=== PATIENT | female | born 1965 | race Caucasian/White ===

== ENCOUNTER 2018-09-06 07:52 | Inpatient (IN) | payer BC, OTHER ==
[~2018-09-06] VITALS: Ht 170.2 cm; Wt 133.0 kg
[~2018-09-06 07:52] MED LIST: CELEBREX100 MG PO; CIPRO500 MG PO; CLINDAMYCIN HC300 MG PO; COLACE100 MG PO; CYCLOBENZAPRINE5 MG PO; FAMOTIDINE20 MG PO; FUROSEMIDE40 MG PO; MILK OF MA400 MG/5 M PO; MINOCYCLINE HC100 M1 PO; PLAVIX75 MG PO; PRINZIDE 20-121 EACH; PROBIOTIC & AC1 EACH PO; TYLENOL WITH C1 EACH PO; ULTRAM 50MG50 MG PO; ZOFRAN4 MG PO
--- OUTSIDE RECORDS SUMMARY | 2018-09-06 07:55 | XMS REPORT ---
[facility] Address Unknown Phone Unavailable Care Team Providers Care Implementation Advisor Name Role Phone Unavailable Unavailable Payers Payer Name Policy Type Policy Number Effective Date Expiration Date Problems This patient has no known problems. Allergies, Adverse Reactions, Alerts Allergy Name Allergy Type Status Severity Reaction(s) Onset Date Inactive Date Treating Clinician Comments erythromycin base DA Active [place] 2018-08-05 00:00:00 sulfamethoxazole DA Active [place] 2018-08-05 00:00:00 levofloxacin DA Active MO 2018-08-05 00:00:00 erythromycin base DA Active U 2016-06-25 00:00:00 sulfamethoxazole DA Active U 2016-06-25 00:00:00 trimethoprim DA Active U 2016-06-25 00:00:00 levofloxacin DA Active U 2016-06-25 00:00:00 Penicillins DA Active [place] 2014-03-31 00:00:00 lidocaine DA Active MO 2014-03-31 00:00:00 aspirin DA Active MO 2014-03-31 00:00:00 BANDAIDS DA Active [place] 2013-06-23 00:00:00 Medications This patient has no known medications.
--- OUTSIDE RECORDS SUMMARY | 2018-09-06 07:55 | XMS REPORT | Clinical Summary ---
Author Author [facility] Address Unknown Phone Unavailable Care Team Providers Care Automotive Glass Installer Name Role Phone Calin Pardo MD PCP Allergies Not on File Current Medications Not on file Active Problems Not on file Encounters Date Type Specialty Care Team Description 08/02/2018 Transcribe Access Kamala Menjivar, Breast cancer screening Orders (Primary Dx) after 09/05/2017 Social History Tobacco Use Types Packs/Day Years Used Date Never Assessed Sex Assigned at Date Recorded Not on file Last Filed Vital Signs Not on file Plan of Treatment Health Maintenance Due Date Last Done Comments CERVICAL CANCER SCREENING 1988 BREAST CANCER SCREENING 2017 12/29/2013, 01/15/2012 COLON CANCER SCREENING 2017 SHINGRIX VACCINE (#1) 2017 INFLUENZA VACCINE 06/01/2018 Results Not on fileafter 09/05/2017 Insurance Payer Benefit Subscriber ID Type Phone Address Plan / Group BCBS BCBS xxxxxxxxxxxx PPO CHOICE PPO/ALLI CHÁVEZ PPO Home: [place] [address]
[2018-09-06] MEDS ORDERED: CELEBREX100 MG PO (08:34)
[2018-09-06] MEDS ORDERED: CLINDAMYCIN HC150 MG PO (08:34)
[2018-09-06] MEDS ORDERED: LISINOPRIL-HCT1 EAC1 PO (08:34)
[2018-09-06] MEDS ORDERED: DEXAMETHASONE SOD PHOS 10 MG/1 ML VIAL IV ONE (09:15)
[2018-09-06] MEDS ORDERED: KETOROLAC TROMETHAMINE 30 MG/ML VIAL IV STA (09:15)
[2018-09-06] MEDS ORDERED: SODIUM CHLORIDE 0.9% IV ONE (10:00)
[2018-09-06] MEDS ORDERED: VANCOMYCIN HCL IV ONE (10:00)
[2018-09-06] MEDS ORDERED: SODIUM CHLORIDE FLUSH 10 ML SYR INJ PRN (13:00)
[2018-09-06] MEDS ORDERED: TRAMADOL HCL 50 MG TAB PO PRN (13:00)
[2018-09-06] MEDS ORDERED: ONDANSETRON HCL INJ 2 MG/ML VIAL IV PRN (13:00)
[2018-09-06] MEDS ORDERED: KETOROLAC TROMETHAMINE 10 MG TAB PO PRN (13:00)
--- OUTSIDE RECORDS SUMMARY | 2018-09-06 13:09 | XMS REPORT | Clinical Summary ---
Author Author [facility] Address Unknown Phone Unavailable Care Team Providers Care Technical Business Systems Analyst Name Role Phone Calin Pardo MD PCP [...] PPO Home: [place] [address]
[2018-09-06 17:41] VITALS: BP 119/56
[2018-09-06] MEDS ORDERED: SODIUM CHLORIDE 0.9% 500ML 500 ML ONE (19:47)
[2018-09-06 20:00] VITALS: BP 161/72
[2018-09-06] MEDS ORDERED: AZTREONAM 1 GM/NS 50 ML 50 ML IV SCH (20:45)
[2018-09-06 21:02] LABS: CHOL/HDL RATIO 4.8 (3.0-3.6)
[2018-09-06] MEDS: VANCOMYCIN 1GM/NS 250 ML 250 ML IV SCH (21:16)
[2018-09-06] MEDS: AZTREONAM 1 GM/NS 50 ML 50 ML IV SCH (22:04)
[2018-09-06 22:39] VITALS: BP 161/72
--- NOTE | 2018-09-06 23:10 | History and Physical ---
PRIMARY CARE PHYSICIAN: Dr. Calin Pardo CHIEF COMPLAINT: Chin infection. HISTORY OF PRESENT ILLNESS: This is a 53-year-old woman with a history of recurrent leg cellulitis, now developing chin redness and pain. Patient states that she has been having recent skin infection that has been recurrent. She had unilateral Bartholin cyst, followed by recurrent Bartholin cyst on the upper lip side. She underwent incision and drainage, treated with clindamycin. She subsequently developed infection of the chin, received antibiotics, went to [facility] and underwent incision and drainage and treated with clindamycin, but symptoms worsened with redness spreading down the neck and up to face, therefore she came to the hospital for further evaluation and management. PAST MEDICAL HISTORY: Arthritis, bilateral knees; hypertension; Bartholin cyst; chin abscess, status post incision and drainage; right foreleg cellulitis; right leg pain; right leg edema; constipation; hypokalemia; prediabetes; morbid obesity; bilateral leg lymphedema. PAST SURGICAL HISTORY: Bilateral knee meniscus repair, right foot surgery, cholecystectomy, tonsillectomy, spider bide status post wound debridement. ALLERGIES: PER ELECTRONIC MEDICAL RECORD. FAMILY/SOCIAL HISTORY: Family history of diabetes and hypertension. Mother had colon cancer. Patient is . No alcohol, illicits, or cigarettes. MEDICATIONS: Per electronic medical record. REVIEW OF SYSTEMS: Denies any fever, chills, sweats, nausea, vomiting, diarrhea, headache, back pain, vision changes, leg pain. PHYSICAL EXAMINATION: VITAL SIGNS: Reviewed. GENERAL APPEARANCE: Tired-appearing woman resting in bed. HEENT: Anicteric. She has left chin erythema, tenderness, edema. There are some red streaks going down towards the neck. CARDIOVASCULAR: Normal S1 and S2. LUNGS: Moderate breath sounds. ABDOMEN: Soft, nontender, nondistended. EXTREMITIES: No edema. SKIN: Dry. PSYCHIATRIC: Flat affect. NEUROLOGICAL: Alert and oriented x3. Moving all extremities. LABS: Reviewed. MEDICATIONS: Reviewed. ASSESSMENT: This is a 53-year-old woman. 1. Chin abscess. 2. Prediabetes. 3. Morbid obesity. 4. Hypertension. 5. Hyperlipidemia. PLAN: 1. She is status post incision and drainage of the abscess. 2. Will use IV vancomycin and IV cefepime. 3. Follow up cultures. Obtain wound culture. 4. Use SCD for prophylaxis. 5. Disposition: Follow up labs in the morning and plan to treat with antibiotics for 1 to 2 days and subsequently transition to oral antibiotics. Job#: [id number]
[2018-09-07] VITALS (8 sets, daily range): BP systolic 101–132; BP diastolic 50–81
[2018-09-07 05:05] LABS: BASOPHILS % 0.1 % (0.0-1.0); HEMATOCRIT 35.8 % (34.2-44.1); HEMOGLOBIN 12.2 g/dL (12.0-16.0); LYMPHOCYTES # (AUTO) 1.4 (1.0-3.2); LYMPHOCYTES % 9.5 % (18.0-39.1); MEAN CORPUSCULAR HEMOGLOBIN 30.6 pg (28-32); MEAN CORPUSCULAR HGB CONC 34.1 g/dL (31-35); MEAN CORPUSCULAR VOLUME 89.7 fL (81-99); MONOCYTES # (AUTO) 0.5 (0.2-0.8); NEUTROPHILS # (AUTO) 13.2 (2.1-6.9); NEUTROPHILS % 86.7 % (38.7-80.0); PLATELET COUNT 260 x10e3/uL (140-360); RED BLOOD COUNT 3.99 x10e6/uL (3.6-5.1); RED CELL DISTRIBUTION WIDTH 12.9 % (11.7-14.4)
[2018-09-07] MEDS: AZTREONAM 1 GM/NS 50 ML 50 ML IV SCH ×3 (05:23→22:42)
[2018-09-07 07:08] LABS: ANION GAP 13.9 mmol/L (8-16); BLOOD UREA NITROGEN 27 mg/dL (7-26); BUN/CREATININE RATIO 28 (6-25); CALCIUM 9.2 mg/dL (8.4-10.2); CARBON DIOXIDE 21 mmol/L (22-29); CHLORIDE 101 mmol/L (98-107); CREATININE, SERUM 0.96 mg/dL (0.57-1.11); EST GLOMERULAR FILTRATION RATE > 60 ML/MIN (60-); GLUCOSE 151 mg/dL (74-118); POTASSIUM 3.9 mmol/L (3.5-5.1); SODIUM 132 mmol/L (136-145)
[2018-09-07] MEDS: HYDROCHLOROTHIAZIDE 25 MG TAB PO SCH (09:04)
[2018-09-07] MEDS: VANCOMYCIN 1GM/NS 250 ML 250 ML IV SCH ×2 (09:04→21:00)
[2018-09-07] MEDS: CLOPIDOGREL BISULFATE 75 MG TAB PO SCH (09:04)
[2018-09-07] MEDS: LISINOPRIL 20 MG TAB PO SCH (09:04)
[2018-09-08] VITALS: BP 104/55
[2018-09-08] MEDS ORDERED: CLINDAMYCIN 300MG 50 ML IV SCH
[2018-09-08 04:00] VITALS: BP 116/52
[2018-09-08] MEDS: AZTREONAM 1 GM/NS 50 ML 50 ML IV SCH (05:29)
[2018-09-08] MEDS: CLINDAMYCIN 300MG 50 ML IV SCH ×2 (05:59)
[2018-09-08 07:43] VITALS: BP 116/55
[2018-09-08] MEDS: HYDROCHLOROTHIAZIDE 25 MG TAB PO SCH (09:41)
[2018-09-08] MEDS: LISINOPRIL 20 MG TAB PO SCH (09:41)
[2018-09-08] MEDS: CLOPIDOGREL BISULFATE 75 MG TAB PO SCH (09:41)
[2018-09-08 11:25] VITALS: BP 136/78
[2018-09-08] MEDS: LINEZOLID 600 MG/D5W 300ML 300 ML IV SCH (14:27)
[2018-09-08 15:42] VITALS: BP 107/56
[2018-09-08 16:17] LABS: BASOPHILS # (AUTO) 0.1 (0.0-0.1); BASOPHILS % 0.6 % (0.0-1.0); EOSINOPHILS # (AUTO) 0.2 (0.0-0.4); EOSINOPHILS % 1.3 % (0.0-6.0); HEMATOCRIT 38.6 % (34.2-44.1); HEMOGLOBIN 12.6 g/dL (12.0-16.0); LYMPHOCYTES # (AUTO) 4.1 (1.0-3.2); LYMPHOCYTES % 36.3 % (18.0-39.1); MEAN CORPUSCULAR HEMOGLOBIN 29.9 pg (28-32); MEAN CORPUSCULAR HGB CONC 32.6 g/dL (31-35); MEAN CORPUSCULAR VOLUME 91.7 fL (81-99); MONOCYTES # (AUTO) 0.9 (0.2-0.8); NEUTROPHILS # (AUTO) 6.1 (2.1-6.9); NEUTROPHILS % 53.3 % (38.7-80.0); PLATELET COUNT 276 x10e3/uL (140-360); RED BLOOD COUNT 4.21 x10e6/uL (3.6-5.1); RED CELL DISTRIBUTION WIDTH 13.3 % (11.7-14.4)
[2018-09-08 16:38] LABS: ANION GAP 14.6 mmol/L (8-16); BLOOD UREA NITROGEN 23 mg/dL (7-26); BUN/CREATININE RATIO 26 (6-25); CALCIUM 8.9 mg/dL (8.4-10.2); CARBON DIOXIDE 26 mmol/L (22-29); CHLORIDE 99 mmol/L (98-107); EST GLOMERULAR FILTRATION RATE > 60 ML/MIN (60-); GLUCOSE 82 mg/dL (74-118); POTASSIUM 3.6 mmol/L (3.5-5.1); SODIUM 136 mmol/L (136-145)
[2018-09-08 20:00] VITALS: BP 96/54
[2018-09-08] MEDS: FAMOTIDINE 20 MG/2 ML VIAL IV SCH (22:38)
[2018-09-09] VITALS: BP 93/50
[2018-09-09] MEDS: LINEZOLID 600 MG/D5W 300ML 300 ML IV SCH (02:46)
[2018-09-09] MEDS ORDERED: SODIUM CHLORIDE 0.9% 250ML 250 ML ONE (02:48)
[2018-09-09 04:00] VITALS: BP 88/44
[2018-09-09 08:00] VITALS: BP 140/86
[2018-09-09] MEDS: LISINOPRIL 20 MG TAB PO SCH (08:46)
[2018-09-09] MEDS: CLOPIDOGREL BISULFATE 75 MG TAB PO SCH (08:46)
[2018-09-09] MEDS: HYDROCHLOROTHIAZIDE 25 MG TAB PO SCH (09:00)
[2018-09-09] MEDS ORDERED: LINEZOLID 600 MG/D5W 300ML 300 ML IV SCH (09:15)
[2018-09-09] MEDS: FAMOTIDINE 20 MG/2 ML VIAL IV SCH (09:34)
[2018-09-09 10:15] VITALS: BP 140/86
[2018-09-09] MEDS ORDERED: ZYVOX600 MG PO (11:38)
[2018-09-09 12:00] VITALS: BP 121/65
[2018-09-09 12:22] LABS: BASOPHILS # (AUTO) 0.1 (0.0-0.1); BASOPHILS % 0.7 % (0.0-1.0); EOSINOPHILS # (AUTO) 0.2 (0.0-0.4); EOSINOPHILS % 1.8 % (0.0-6.0); HEMATOCRIT 41.3 % (34.2-44.1); HEMOGLOBIN 13.6 g/dL (12.0-16.0); MEAN CORPUSCULAR HEMOGLOBIN 30.1 pg (28-32); MEAN CORPUSCULAR HGB CONC 32.9 g/dL (31-35); MEAN CORPUSCULAR VOLUME 91.4 fL (81-99); MONOCYTES # (AUTO) 0.8 (0.2-0.8); MONOCYTES % 7.7 % (4.4-11.3); NEUTROPHILS % 59.3 % (38.7-80.0); PLATELET COUNT 302 x10e3/uL (140-360); RED BLOOD COUNT 4.52 x10e6/uL (3.6-5.1); RED CELL DISTRIBUTION WIDTH 13.2 % (11.7-14.4)
[2018-09-09 12:43] LABS: ANION GAP 13.1 mmol/L (8-16); CALCIUM 9.3 mg/dL (8.4-10.2); CREATININE, SERUM 1.02 mg/dL (0.57-1.11); POTASSIUM 4.1 mmol/L (3.5-5.1)
== END 2018-09-09 14:50 | disposition home or self-care (01) | DRG 872 ==
LOC: ER 07:52 → ERHOLD 12:54 → MED/SURG3 17:13
PROVIDERS: ADMIT Internal Medicine; ATTEND Internal Medicine
DX: A41.02 Sepsis due to Methicillin resistant Staphylococcus aureus (principal); Z68.42 Body mass index [BMI] 45.0-49.9, adult; L02.01 Cutaneous abscess of face; N75.0 Cyst of Bartholin's gland; E66.01 Morbid (severe) obesity due to excess calories; E78.5 Hyperlipidemia, unspecified; R73.03 Prediabetes; I10 Essential (primary) hypertension; M17.0 Bilateral primary osteoarthritis of knee
CPT/HCPCS: 36415; 80048; 80061; 80202; 83036; 85025; 87071; 87186; 87205; 99284; J1100; J1885; J2020; J3370; J7040; J7050